=== PATIENT | male | born 1990 | race Caucasian/White ===

== ENCOUNTER 2020-03-25 15:56 | Inpatient (IN) | payer OTHER ==
[2020-03-25 17:31] VITALS: BMI 27.1
--- NOTE | 2020-03-25 20:49 | HP ---
CIWA Score Nausea/Vomitin (vomiting x 3) Muscle Tremors: 4-Moderate,w/Arms Extend Anxiety: 3 Agitation: 4-Moderately Restless Paroxysmal Sweats: 2 Orientation: 0-Oriented Tacttile Disturbances: 0-None Auditory Disturbances: 0-None Visual Disturbances: 0-None Headache: 3-Moderate CIWA-Ar Total Score: 19 - Admission Criteria [facility]ASAS Guidelines: Admission for Medically Managed Detox: Requires at least one of the followin. CIWA greater than 12 2. Seizures within the past 24 hours 3. Delirium tremens within the past 24 hours 4. Hallucinations within the past 24 hours 5. Acute intervention needed for co occurring medical disorder 6. Acute intervention needed for co occurring psychiatric disorder 7. Severe withdrawal that cannot be handled at a lower level of care (continued vomiting, continued diarrhea, abnormal vital signs) requiring intravenous medication and/or fluids 8. Admission ROS [facility] Chief Complaint: Alcohol withdrawal symptoms Allergies/Adverse Reactions: Allergies Allergy/AdvReac Type Severity Reaction Status Date / Time No Known Allergies Allergy Verified 03/25/20 20:42 History of Present Illness: 30 years old male with 11 years of alcohol dependence is seeking admission to detox. This is his first admission to [facility] and patient reports that his last admission was at [facility]. He reports that he drinks 1 liter of vodka and 2 x 6 packs of beer daily. He has medical history of asthma, psych. history of bipolar disorder, depression and anxiety. He denies suicidal ideation at this time. 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 He lost his job recently, lives alone and is on probation for DWI. Exam Limitations: No Limitations - Ebola screening Have you traveled outside of the country in the last 21 days: No Have you had contact with anyone from an Ebola affected area: No Have you been sick,other than usual withdrawal symptoms: No Do you have a fever: No - Review of Systems Constitutional: Chills, Loss of Appetite, Malaise, Night Sweats, Changes in sleep EENT: reports: No Symptoms Reported Respiratory: reports: No Symptoms reported Cardiac: reports: No Symptoms Reported GI: reports: Diarrhea (x 2), Nausea, Poor Appetite, Poor Fluid Intake, Vomiting, Abdominal cramping : reports: No Symptoms Reported Musculoskeletal: reports: No Symptoms Reported Integumentary: reports: Dryness, Flushing Neuro: reports: Headache, Tremors Endocrine: reports: No Symptoms Reported Hematology: reports: No Symptoms Reported Psychiatric: reports: Mood/Affect Appropiate, Agitated, Anxious Other Systems: Reviewed and Negative Patient History - Patient Medical History Hx Anemia: No Hx Asthma: Yes Hx Chronic Obstructive Pulmonary Disease (COPD): No Hx Cancer: No Hx Cardiac Disorders: No Hx Congestive Heart Failure: No Hx Hypertension: No Hx Hypercholesterolemia: No Hx Pacemaker: No HX Cerebrovascular Accident: No Hx Seizures: No Hx Dementia: No Hx Diabetes: No Hx Gastrointestinal Disorders: No Hx Liver Disease: No Hx Genitourinary Disorders: No Hx Sexually Transmitted Disorders: No Hx Renal Disease (ESRD): No Hx Thyroid Disease: No Hx Human Immunodeficiency Virus (HIV): No (Negative 2019) Hx Hepatitis C: No Hx Depression: Yes (+ Anxiety. Not on medication) Hx Suicide Attempt: No (Denies suicidal ideation at this time) Hx Bipolar Disorder: Yes (Not on medication) Hx Schizophrenia: No - Patient Surgical History Past Surgical History: No - PPD History Previous Implant?: Yes Documented Results: Negative w/o proof Implanted On Prior [facility] Admission?: No PPD to be Administered?: Yes - Reproductive History Patient is a Female of Child Bearing Age (11 -55 yrs old): No (Male) - Smoking Cessation Smoking history: Never smoked Have you smoked in the past 12 months: No Hx Chewing Tobacco Use: No Initiated information on smoking cessation: No - Substance & Tx. History Hx Alcohol Use: Yes Hx Substance Use: No Substance Use Type: Alcohol Hx Substance Use Treatment: Yes ([facility]) - Substances abused Alcohol Other (specify): Vodka Frequency: Daily Amount used: 1 liter of Vodka, 2x 6 pack beer Age of first use: 19 Date of last use: 03/25/20 Admission Physical Exam [facility] - Vital Signs Vital Signs: Vital Signs - 24 hr 03/25/20 17:30 Temperature 97.6 F Pulse Rate 62 Respiratory 18 Rate Blood Pressure 132/83 - Physical General Appearance: Yes: Moderate Distress, Tremorous, Irritable, Sweating, Anxious HEENTM: Yes: Within Normal Limits Respiratory: Yes: Lungs Clear, Normal Breath Sounds, No Respiratory Distress Neck: Yes: Within Normal Limits Breast: Yes: Breast Exam Deferred Cardiology: Yes: Regular Rhythm, Regular Rate Abdominal: Yes: Normal Bowel Sounds, Soft Genitourinary: Yes: Within Normal Limits Back: Yes: Normal Inspection Musculoskeletal: Yes: Within Normal Limits Extremities: Yes: Tremors Neurological: Yes: Within Normal Limits Integumentary: Yes: Warm - Diagnostic (1) Alcohol dependence with withdrawal, uncomplicated Current Visit: Yes Status: Acute (2) Asthma Current Visit: Yes Status: Chronic Qualifiers: Asthma severity: mild Asthma persistence: intermittent Asthma complication type: uncomplicated Qualified Code(s): J45.20 - Mild intermittent asthma, uncomplicated (3) Depression Current Visit: Yes Status: Chronic Qualifiers: Depression Type: unspecified Qualified Code(s): F32.9 - Major depressive disorder, single episode, unspecified (4) Anxiety Current Visit: Yes Status: Chronic (5) Bipolar disorder Current Visit: Yes Status: Chronic Cleared for Admission S - Detox or Rehab [facility] Level of Care: Medically Managed Detox Regimen/Protocol: Librium Claeared for Rehab Admission: No Breathalyzer - Breathalyzer Breathalyzer: 0 Urine Drug Screen - Test Device Lot number: [id number] Expiration date: 11/29/21 - Control Is test valid?: Yes - Results Drug screen NEGATIVE: Yes Inpatient Rehab Admission - Rehab Decision to Admit Inpatient rehab admission?: No
[2020-03-25] MEDS ORDERED: chlordiazePOXIDE HCL 25 MG CAPSULE PO PRN (20:58)
[2020-03-25] MEDS ORDERED: MAG HYDROX/AL HYDROX/SIMETH 30 ML UNIT-DOSE CUP PO PRN (20:58)
[2020-03-25] MEDS ORDERED: BISMUTH SUBSALICYLATE 524 MG/30 ML UD PO PRN (20:58)
[2020-03-25] MEDS ORDERED: MENTHOL/PHENOL 1 EACH UD MM PRN (20:58)
[2020-03-25] MEDS ORDERED: IBUPROFEN 400 MG TABLET (FP) PO PRN (20:58)
[2020-03-25] MEDS ORDERED: MAGNESIUM HYDROX 2400MG/30ML ORAL SUSPENSION 30 ML CUP PO PRN (20:58)
[2020-03-25] MEDS ORDERED: MAGNESIUM CITRATE 300 ML BOTTLE PO PRN (20:58)
[2020-03-25] MEDS ORDERED: METHOCARBAMOL 500 MG TABLET PO PRN (20:58)
[2020-03-25] MEDS ORDERED: ACETAMINOPHEN 325 MG TABLET (FP) PO PRN ×2 (20:58)
[2020-03-25] MEDS ORDERED: NICOTINE POLACRILEX 2 MG GUM BUC PRN (20:58)
[2020-03-25] MEDS ORDERED: hydrOXYzine PAMOATE 25 MG CAPSULE (FP) PO PRN (21:07)
[2020-03-25] MEDS ORDERED: ONDANSETRON *ODT* 4 MG TABLET SL ONE (21:45)
[2020-03-25] MEDS ORDERED: hydrOXYzine PAMOATE 25 MG CAPSULE (FP) PO SCH (22:00)
[2020-03-25] MEDS: THIAMINE HCL 100 MG TABLET (FP) PO SCH (23:34)
[2020-03-25] MEDS: chlordiazePOXIDE HCL 25 MG CAPSULE PO SCH (23:36)
[2020-03-25] MEDS: MELATONIN 5 MG TABLETS PO SCH (23:37)
[2020-03-26] MEDS: chlordiazePOXIDE HCL 25 MG CAPSULE PO SCH ×4 (06:11→22:04)
[2020-03-26] MEDS ORDERED: MASKS NR ONE ×2 (06:14→07:12)
[2020-03-26] MEDS ORDERED: NICOTINE 7 MG/24 HOURS TOPICAL PATCH TD SCH (10:00)
[2020-03-26] MEDS ORDERED: PRENATAL VITAMINS W/ FOLIC ACID TABLET (FP) PO SCH (10:00)
--- NOTE | 2020-03-26 10:26 | EKG ---
Test Reason : Blood Pressure : / mmHG Vent. Rate : 053 BPM Atrial Rate : 053 BPM P-R Int : 088 ms QRS Dur : 096 ms QT Int : 470 ms P-R-T Axes : 059 062 058 degrees QTc Int : 441 ms SINUS BRADYCARDIA WITH SINUS ARRHYTHMIA WITH SHORT CA NONSPECIFIC T WAVE ABNORMALITY ABNORMAL ECG NO PREVIOUS ECGS AVAILABLE Confirmed by Edson Ellis ([id number]) on 03/26/2020 10:26:45 AM Referred By: Confirmed By:Edson Ellis
[2020-03-26 10:59] LABS: HEMATOCRIT 43.4 % (35.4-49); HEMOGLOBIN 14.9 GM/dL (11.7-16.9); MCHC 34.3 g/dl (32.0-35.9); MEAN CELL VOLUME 96.2 fl (80-96); MEAN PLT VOLUME 7.4 fl (7.5-11.1); PLATELET COUNT 290 K/MM3 (134-434); RBC 4.51 M/mm3 (4.00-5.60); RDW 13.2 % (11.9-15.9); WHITE BLOOD COUNT 6.7 K/mm3 (4.0-10.0)
[2020-03-26 11:20] LABS: ALBUMIN 3.9 g/dl (3.4-5.0); BILIRUBIN,TOTAL 2.6 mg/dL (0.2-1); BLOOD UREA NITROGEN 12.4 mg/dL (7-18); CALCIUM 8.2 mg/dL (8.5-10.1); CREATININE 1.3 mg/dL (0.55-1.3); POTASSIUM 3.8 mmol/L (3.5-5.1); TOT PROT 7.1 g/dl (6.4-8.2)
[2020-03-26] MEDS ORDERED: PNEUMOCOCCAL 23 VACCINE 0.5 ML VIAL IM ONE (12:00)
[2020-03-26] MEDS ORDERED: PNEUMOC 13-VAL CONJ-DIP CRM/PF 0.5 ML DISP.SYRIN IM ONE (12:00)
--- NOTE | 2020-03-26 14:09 | CONSULT ---
[facility] Psychiatric Consult - Data Date of interview: 03/26/20 Admission source: [facility] Identifying data: First visit to [facility] and admission to [address] [place] [address] for this 30 y/o male self-referred for detoxification treatment (alcohol). patient is single, a father of one, domiciled, currently unemployed and supported on his personal savings. Substance Abuse History: Discussed with the patient. KIERSTEN profile as follows : Smoking history: Never smoked. Have you smoked in the past 12 months: No. Hx Chewing Tobacco Use: No. Initiated information on smoking cessation: No. - Substance & Tx. History. Hx Alcohol Use: Yes. Hx Substance Use: No. Substance Use Type: Alcohol. [facility] - Substances abused. Alcohol. Other (specify): Vodka. Frequency: Daily. Amount used: 1 liter of Vodka, 2x 6 pack beer. Age of first use: 19. Date of last use: 03/25/20 Medical History: Patient endorses good general health. Psychiatric History: Patient admits to one psychiatric hospitalization in October 2019 at [facility]. " They kept me there for a couple of days because of my aggressive behavior and suicidal thoughts." Mr Sheets mentions the diagnosis of bipolar disorder (established 2-3 years ago by another physician). Patient disagrees. " What I had was psychosis caused by alcohol." He admits to past treatment with lithium. Has been off psychotropic medications for several months. No contact with [facility]PD care providers. Patient denies history of suicide attempts. Physical/Sexual Abuse/Trauma History: Patient denies. Additional Comment: Negative toxicology. Mental Status Exam - Mental Status Exam Alert and Oriented to: Time, Place, Person Cognitive Function: Good Patient Appearance: Well Groomed (muscular built) Mood: Withdrawn, Anxious Affect: Appropriate, Normal Range Patient Behavior: Fatigued, Appropriate, Cooperative Speech Pattern: Clear, Appropriate Voice Loudness: Normal Thought Process: Goal Oriented Thought Disorder: Not Present Hallucinations: Denies Suicidal Ideation: Denies Insight/Judgement: Poor Sleep: Well Appetite: Good Gait/Station: Normal Psychiatric Findings - Problem List ([place] 1, 2,3) (1) Alcohol dependence with withdrawal, uncomplicated Current Visit: Yes Status: Acute (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 Sleep hygiene. Detoxification. Observation.
--- NOTE | 2020-03-26 14:22 | PN ---
S CIWA - CIWA Score Nausea/Vomitin-Mild Nausea/No Vomiting Muscle Tremors: 4-Moderate,w/Arms Extend Anxiety: 3 Agitation: 2 Paroxysmal Sweats: 1-Minimal Palms Moist Orientation: 0-Oriented Tacttile Disturbances: 0-None Auditory Disturbances: 0-None Visual Disturbances: 2-Mild Sensitivity Headache: 1-Very Mild CIWA-Ar Total Score: 14 BHS Progress Note (SOAP) Subjective: 30 years old male admitted on 03/24/20 for alcohol withdrawal sx management treating with librium detox regiment feels hot and cold and chills tremor anxiety Objective: 03/26/20 14:31 Vital Signs - 24 hr 03/25/20 03/25/20 03/25/20 17:30 22:08 22:44 Temperature 97.6 F 97.5 F L 97.5 F L Pulse Rate 62 61 61 Respiratory 18 18 18 Rate Blood Pressure 132/83 123/72 123/72 O2 Sat by Pulse 98 Oximetry (%) 03/26/20 03/26/20 03/26/20 06:40 08:58 12:53 Temperature 97.5 F L 97.3 F L 97.5 F L Pulse Rate 84 84 84 Respiratory 18 18 16 Rate Blood Pressure 130/79 120/72 112/74 O2 Sat by Pulse 100 100 100 Oximetry (%) Laboratory Tests 03/26/20 03/26/20 03/26/20 08:05 08:05 08:05 WBC 6.7 RBC 4.51 Hgb 14.9 Hct 43.4 MCV 96.2 H MCH 33.0 MCHC 34.3 RDW 13.2 Plt Count 290 MPV 7.4 L Sodium Potassium Chloride Carbon Dioxide Anion Gap BUN Creatinine Est GFR (CKD-EPI)AfAm Est GFR (CKD-EPI)NonAf Random Glucose Calcium Total Bilirubin AST ALT Alkaline Phosphatase Total Protein Albumin Syphilis Serology Non-reactive HIV Ag/Ab Combo Qual Negative 03/26/20 08:05 WBC RBC Hgb Hct MCV MCH MCHC RDW Plt Count MPV Sodium 141 Potassium 3.8 Chloride 103 Carbon Dioxide 32 Anion Gap 7 L BUN 12.4 Creatinine 1.3 Est GFR (CKD-EPI)AfAm 84.27 Est GFR (CKD-EPI)NonAf 72.71 Random Glucose 105 Calcium 8.2 L Total Bilirubin 2.6 H AST 44 H ALT 44 Alkaline Phosphatase 75 Total Protein 7.1 Albumin 3.9 Syphilis Serology HIV Ag/Ab Combo Qual 03/26/20 14:31 covid pending Assessment: 03/26/20 14:31 alcohol withdrawal Plan: librium regiment
[2020-03-26] MEDS: THIAMINE HCL 100 MG TABLET (FP) PO SCH (22:03)
[2020-03-26] MEDS: MELATONIN 5 MG TABLETS PO SCH (22:07)
[2020-03-27] MEDS ORDERED: chlordiazePOXIDE HCL 25 MG CAPSULE PO SCH (05:00)
--- NOTE | 2020-03-27 08:56 | DS ---
[facility] Detox Discharge Summary Admission Date: 03/25/20 Discharge Date: 03/27/20 - History Present History: Alcohol Dependence Additional Comments: 30 years old male admitted on 03/24/20 for alcohol withdrawal sx management treated with librium detox regiment seen by psychiatrist no medical intervention mr clemens states that he feels better today prefers to leave the detox and return to work and school mr clemens is alert oriented x 3 speech clearly coherently ambulating with steady gaits General Appearance: Yes: Moderate Distress, Tremorous, Irritable, Sweating, Anxious HEENTM: Yes: Within Normal Limits Respiratory: Yes: Lungs Clear, Normal Breath Sounds, No Respiratory Distress Neck: Yes: Within Normal Limits Breast: Yes: Breast Exam Deferred Cardiology: Yes: Regular Rhythm, Regular Rate Abdominal: Yes: Normal Bowel Sounds, Soft Genitourinary: Yes: Within Normal Limits Back: Yes: Normal Inspection Musculoskeletal: Yes: Within Normal Limits Extremities: Yes: Tremors Neurological: Yes: Within Normal Limits Integumentary: Yes: Warm Pertinent Past History: time for discharge 42 minutes treatment team met with mr velasquez to discuss the benefits of librium completion mr clemens prefers to terminate detox regimen and begin alcohol recovery today at [facility] where mr clemens attended for behavior and psychosocial therapies - Physical Exam Results Vital Signs: Vital Signs Temperature 97.6 F 03/27/20 06:18 Pulse Rate 54 L 03/27/20 06:18 Respiratory Rate 16 03/27/20 06:18 Blood Pressure 106/63 03/27/20 06:18 O2 Sat by Pulse Oximetry (%) 100 03/27/20 06:18 Pertinent Admission Physical Exam Findings: alcohol withdrawal Laboratory Tests 03/25/20 03/26/20 03/26/20 23:00 08:05 08:05 WBC RBC Hgb Hct MCV MCH MCHC RDW Plt Count MPV Sodium Potassium Chloride Carbon Dioxide Anion Gap BUN Creatinine Est GFR (CKD-EPI)AfAm Est GFR (CKD-EPI)NonAf Random Glucose Calcium Total Bilirubin AST ALT Alkaline Phosphatase Total Protein Albumin Syphilis Serology Non-reactive COVID-19 (ALBERTINA) Not detected HIV Ag/Ab Combo Qual Negative 03/26/20 03/26/20 08:05 08:05 WBC 6.7 RBC 4.51 Hgb 14.9 Hct 43.4 MCV 96.2 H MCH 33.0 MCHC 34.3 RDW 13.2 Plt Count 290 MPV 7.4 L Sodium 141 Potassium 3.8 Chloride 103 Carbon Dioxide 32 Anion Gap 7 L BUN 12.4 Creatinine 1.3 Est GFR (CKD-EPI)AfAm 84.27 Est GFR (CKD-EPI)NonAf 72.71 Random Glucose 105 Calcium 8.2 L Total Bilirubin 2.6 H AST 44 H ALT 44 Alkaline Phosphatase 75 Total Protein 7.1 Albumin 3.9 Syphilis Serology COVID-19 (ALBERTINA) HIV Ag/Ab Combo Qual lab noted - Treatment Hospital Course: Detox Protocol Followed, Detoxed Safely, Responded well, Discharged Condition Good, Rehab Referral Accepted Patient has Accepted a Rehab Referral to: [facility] Recovery - Medication Discharge Medications: Ambulatory Orders Naltrexone HCl 50 mg PO DAILY 03/25/20 - Diagnosis (1) Substance induced mood disorder Status: Suspected (2) Alcohol dependence with withdrawal, uncomplicated Status: Acute (3) Asthma Status: Chronic Qualifiers: Asthma severity: mild Asthma persistence: intermittent Asthma complication type: uncomplicated Qualified Code(s): J45.20 - Mild intermittent asthma, uncomplicated - AMA Did Patient Leave Against Medical Advice: No CIWA Score - CIWA Score Nausea/Vomitin-No Nausea/No Vomiting Muscle Tremors: 3 Anxiety: 3 Agitation: 2 Paroxysmal Sweats: No Perspiration Orientation: 0-Oriented Tacttile Disturbances: 0-None Auditory Disturbances: 0-None Visual Disturbances: 1-Very Mild Sensitivity Headache: 0-None Present CIWA-Ar Total Score: 9
[2020-03-27 09:06] VITALS: BP 125/70; PULSE 95; TEMP 97.3
--- NOTE | 2020-03-27 10:47 | EKG ---
Test Reason : Blood Pressure : / mmHG Vent. Rate : 072 BPM Atrial Rate : 072 BPM P-R Int : 120 ms QRS Dur : 092 ms QT Int : 382 ms P-R-T Axes : 058 061 061 degrees QTc Int : 418 ms NORMAL SINUS RHYTHM WITH SINUS ARRHYTHMIA NONSPECIFIC T WAVE ABNORMALITY ABNORMAL ECG WHEN COMPARED WITH ECG OF 25-MAR-2020 20:28, T WAVE INVERSION NO LONGER EVIDENT IN ANTERIOR LEADS Confirmed by Levi Haque ([id number]) on 03/27/2020 10:46:40 AM Referred By: Confirmed By:Levi Haque
[2020-03-28] MEDS ORDERED: chlordiazePOXIDE HCL 10 MG CAPSULE PO PRN
[2020-03-28] MEDS ORDERED: chlordiazePOXIDE HCL 10 MG CAPSULE PO SCH (05:00)
[2020-03-29] MEDS ORDERED: chlordiazePOXIDE HCL 10 MG CAPSULE PO SCH (05:00)
[2020-03-30] MEDS ORDERED: chlordiazePOXIDE HCL 10 MG CAPSULE PO ONE (05:00)
== END 2020-03-27 09:23 | disposition home or self-care (01) | DRG 775 ==
LOC: YASAS 15:56 → Y3N 21:22
PROVIDERS: ADMIT Allergy & Immunology; ATTEND Allergy & Immunology
PROC: HZ2ZZZZ Detoxification Services for Substance Abuse Treatment (ICD-10-PCS; principal; 2020-03-25)
DX: F10.230 Alcohol dependence with withdrawal, uncomplicated (principal); F10.280 Alcohol dependence with alcohol-induced anxiety disorder; F19.24 Other psychoactive substance dependence with psychoactive substance-induced mood disorder; F32.9 Major depressive disorder, single episode, unspecified; F41.9 Anxiety disorder, unspecified; J45.20 Mild intermittent asthma, uncomplicated
CPT/HCPCS: 36415; 80053; 85027; 86780; 87389; 90732; 93005; 93010; G0009; Q0162; U0003